=== PATIENT | female | born 1985 ===

== ENCOUNTER 2017-10-09 21:00 | Emergency (ER) | payer BC ==
--- NOTE | 2017-10-09 21:13 | EDPHY ---
H & P Time Seen by Provider: 10/09/17 21:12 HPI/ROS: Chief complaint. Dog bite HPI. 32-year-old female bitten in the right hand by an unknown dog. Bite occurred about 6:00 p.m.. She was breaking up a dog fight between her dog and a unknown dog. She is scratched in the right knee however has been ambulatory. Complains of right thumb pain and swelling. Patient is left handed. Patient' s is speaking to animal [employer] on the phone right now ROS Constitutional. no fever/chills, no weakness Eyes. no problems with vision ENT. no sore throat, no nasal drainage Cardiovascular. no chest pain Respiratory. no shortness of breath, no cough Abdominal. no abdominal pain, no nausea/vomiting, no diarrhea . no problems urinating MS. Right hand dog bite Skin. Scratched right knee Lymph. no swollen glands Neuro. no headache, no dizziness, no difficulty walking or with speech Past Medical/Surgical History: Endometriosis Social History: , nonsmoker, no alcohol Smoking Status: Current every day smoker Physical Exam: General Appearance: Alert well-developed female mild distress vital signs are stable Eyes: Pupils equal and round no pallor or injection. ENT, Mouth: Mucous membranes are moist. Respiratory: There are no retractions, lungs are clear to auscultation. Cardiovascular: Regular rate and rhythm. Gastrointestinal: Abdomen is soft and nontender, no masses, bowel sounds normal. Neurological: Awake and alert, sensory and motor exams grossly normal. Skin: Warm and dry, no rashes. Musculoskeletal: Neck is supple nontender. Extremities puncture wounds to the thenar eminence and base of the thumb and 1 on the dorsum of the right hand opposite the thenar eminence. Fingers 2 through 5 are without symptoms. Mild swelling to the right thumb Psychiatric: Patient is oriented X 3, there is no agitation. Constitutional: Initial Vital Signs Temperature (C) 37 C 10/09/17 21:05 Heart Rate 110 H 10/09/17 21:05 Respiratory Rate 18 10/09/17 21:05 Blood Pressure 145/97 H 10/09/17 21:05 O2 Sat (%) 97 10/09/17 21:05 O2 Delivery Mode Room Air Allergies/Adverse Reactions: No Known Allergies Allergy (Unverified 10/09/17 21:05) Home Medications: Medication Instructions Recorded Amoxicillin/Clavulanate Pot 875 mg PO BID #7 tab 10/09/17 [Augmentin 875 MG TAB (*)] Lo Tiaestrin Fe 1-10 Tablet 10/09/17 Medical Decision Making - Diagnostics Imaging Results: Imaging Impressions Hand X-Ray 10/09/17 21:35 Impression: No acute osseous findings. X-ray right hand interpreted by me shows no evidence of fracture or foreign body Procedures: Augmentin orally. Tetanus immunization. ED Course/Re-evaluation: Re-evaluation 10:00 p.m.. Patient is stable. Patient, her , and I discussed imaging study results, treatment plan including criteria for return importance of follow-up and further evaluation. They expressed understanding and agreement Differential Diagnosis: I considered infection potential, fracture, retained foreign body - Data Points Medications Given: Discontinued Medications Amoxicillin/Clavulanate Potassium (Augmentin 875mg) 875 mg PO EDNOW ONE PRN Reason: Protocol Stop: 10/09/17 21:35 Last Admin: 10/09/17 21:54 Dose: 875 mg Diphtheria/Tetanus/Acell Pertussis (Boostrix) 0.5 ml IM .ONCE ONE Stop: 10/09/17 21:35 Last Admin: 10/09/17 21:54 Dose: 0.5 ml Departure - Departure Disposition: Home, Routine, Self-Care Clinical Impression: Dog bite of right hand Qualifiers: Encounter type: initial encounter Qualified Code(s): S61.451A - Open bite of right hand, initial encounter; W54.0XXA - Bitten by dog, initial encounter; W54.0XXA - Bitten by dog, initial encounter Condition: Good Instructions: Animal Bite (ED) Additional Instructions: Ice to hand especially thumb next 24 hr. Ibuprofen 600 mg every 6 hr for pain. Hydrocodone in addition for pain if necessary Augmentin as antibiotic. Return for increased pain, swelling, redness, fever Recheck in 2 days if not improving Referrals: NONE *PRIMARY CARE P,. [Primary Care Provider] - As per Instructions Prescriptions: Amoxicillin/Clavulanate Pot [Augmentin 875 MG TAB (*)] 875 mg PO BID #7 tab
[2017-10-09] MEDS ORDERED: AMOXICILLIN/CLAVULANATE POT 875/125 MG TAB PO ONE (21:34)
[2017-10-09] MEDS ORDERED: TDAP ADULT 0.5 ML INJ (BOOSTRIX) IM ONE (21:34)
[2017-10-09] MEDS ORDERED: HYDROCOD/APAP 5/325 PREPACK#6 BTL TAKEHOME ONE (22:08)
[2017-10-09 22:19] VITALS: BP 129/89
== END 2017-10-09 22:19 | disposition home or self-care (01) ==
DX: S61.451A Open bite of right hand, initial encounter (principal); F17.200 Nicotine dependence, unspecified, uncomplicated; Z23 Encounter for immunization; W54.0XXA Bitten by dog, initial encounter; Y99.8 Other external cause status; Y93.89 Activity, other specified